=== PATIENT | male | born 1955 ===

== ENCOUNTER 2021-02-03 11:13 | Day surgery (SDC) | payer OTHER ==
[~2021-02-03 11:13] MED LIST: ACETAZOLAMIDE 250 MG TABLET PO ONE; Ak-Dilate OPHTHALMIC*** 1.065 ML, Cyclogyl 1% OPHTH SOL 5 ML 1.065 ML, GATIFLOXACIN 0.5... OP ONE; BETADINE 5% OPHTHALMIC 30 ML OP ONE; Lactated Ringers 1,000 ML IV SCH; NON-FORMULARY ITEM OP ONE; TETRACAINE 0.5% STERI-UNIT SOL OP ONE; Zofran 4 MG/2 ML VIAL IV PRN; cefUROXime sodium 0.005 GM in Sodium Chloride Flush 30 ML*** 0.5 ML IJ ONE
[2021-02-03] MEDS ORDERED: LIDOCAINE HCL 1% 50 MG/5 ML VL PF IJ ONE (11:14)
[2021-02-03] MEDS ORDERED: Epinephrine Preservative Free 1 MG/ML IJ ONE (11:14)
[2021-02-03] MEDS ORDERED: Lactated Ringers 1,000 ML IV ONE (11:34)
[2021-02-03] MEDS ORDERED: SUBLIMAZE 100 MCG/2 ML ONE (13:38)
[2021-02-03] MEDS ORDERED: Versed 2 MG/2 ML Injection ONE ×2 (13:39→13:51)
== END 2021-02-03 14:58 | disposition home or self-care (01) ==
LOC: SDC 11:13
PROVIDERS: ATTEND Ophthalmology
DX: H25.811 Combined forms of age-related cataract, right eye (principal); I10 Essential (primary) hypertension; F41.9 Anxiety disorder, unspecified; J84.10 Pulmonary fibrosis, unspecified; Z99.81 Dependence on supplemental oxygen
CPT/HCPCS: C1780; J0171; J2001; J2250; J3010; A9270-GY